=== PATIENT | male | born 1990 | race Caucasian/White ===

== ENCOUNTER 2023-12-02 16:59 | Emergency (ER) ==
[~2023-12-02] VITALS: Ht 175.3 cm; Wt 77.3 kg
[2023-12-02 17:00] VITALS: BP 132/79; TEMP 98.8; O2SAT 97
== END 2023-12-02 21:20 | disposition left against medical advice (07) ==
LOC: M ED 16:59
DX: Z53.21 Procedure and treatment not carried out due to patient leaving prior to being seen by health care provider (principal)

== ENCOUNTER 2023-12-03 11:44 | Emergency (ER) | payer OTHER ==
[~2023-12-03] VITALS: Ht 175.3 cm; Wt 78.5 kg
[2023-12-03 14:42] VITALS: BP 128/65; TEMP 99.2; O2SAT 98
== END 2023-12-03 14:53 | disposition home or self-care (01) ==
LOC: M ED 11:44
DX: S93.402A Sprain of unspecified ligament of left ankle, initial encounter (principal); Y92.9 Unspecified place or not applicable; Y93.9 Activity, unspecified; Y99.0 Civilian activity done for income or pay